=== PATIENT | female | born 1980 | race Caucasian/White ===

== ENCOUNTER → 2017-07-28 | Outpatient (REF) ==
[~2017-07-28] MED LIST: ACET-2031 PO; ALL-DPT PO; AMO250L PO; ASPI81TA60 PO; ATOV1TAB17 PO; CIPR-214 PO; DEXT1DRO10 OS; ESOM40CA42 PO; KET10 PO; LAC3.5 OP; LOR5/325 PO; LORTAB PO; PAN40 PO; PER PO; PRED-314 PO; TYPH1CAP7 PO; VALA100059 PO; VALA500T66 PO; ZOFRAN PO; ZOLP-1 PO; ZOLP-350 PO
== END ==
DX: Z02.9 Encounter for administrative examinations, unspecified (principal)

== ENCOUNTER 2018-05-07 11:20 | Emergency (ER) | payer OTHER ==
[~2018-05-07 11:20] MED LIST changes: +AMOX-559 PO; +CIPR750T84 PO; +FLUT16SP19 NS; +GUAI120L3 PO; +TRIA5PAS12 TOP
--- NOTE | 2018-05-07 11:42 | EKG ---
[place]AC[place] [facility] [place]IENT NAME: CICI RAGSDALE : [id number] MR: [id number] V: [id number] EXAM DATE: ORDERING PHYSICIAN: DONNELL GOEL TECHNOLOGIST: LUIS A Alcantar Reason : CP Blood Pressure : / mmHG Vent. Rate : 068 BPM Atrial Rate : 068 BPM P-R Int : 154 ms QRS Dur : 084 ms QT Int : 402 ms P-R-T Axes : 042 035 030 degrees QTc Int : 427 ms Sinus rhythm T wave changes through precordial leads Decreased R wave progression through anterior leads Abnormal ECG No previous ECGs available Confirmed by KEYSHA MACHADO ([id number]) on 05/07/2018 4:34:56 PM Referred By: MANASA Confirmed By:KEYSHA MACHADO
[2018-05-07 11:45] LABS: PLATELET COUNT, AUTOMATED 258 K/uL (150-450)
[2018-05-07] MEDS ORDERED: IOPAMIDOL 76% 100 ML INFUS BTL 100 ML ONE (11:47)
[2018-05-07] MEDS ORDERED: NS(*) 0.9% 50 ML BAG 50 ML ONE (11:47)
--- NOTE | 2018-05-07 12:47 | ER Report ---
History and Physical Time Seen By MD: 11:45 Hx. of Stated Complaint: PT PRESENTS WITH HX OF CHEST PRESSURE FOR 2 DAYS. hAD A RECENT COUGH, PROD OF YELLOW IN AM. PT ISD NON SMOKER, WITH A HX OF PE 12 YRS AGO. HAD A RECENT LONG PLANE TRIP HPI/ROS CHIEF COMPLAINT: Pleuritic chest pain and shortness of breath HISTORY OF PRESENT ILLNESS: Patient is a 38-year-old female with prior history of pulmonary embolism approximately 14 years ago she is currently off anticoagulation she states at that time she did have a hypercoagulability workup which was negative. It was felt that the pulmonary embolism was likely to hor elpidio therapy. Patient recently returned from [place] on a [place] trip. She states that just prior to going on the trip she developed some upper respiratory like symptoms. Which included some cough and shortness of breath also generalized malaise. She was prescribed antibiotics by her primary care provider to take if she did not feel better and approximate 5 days into that trip she began her antibiotic therapy. She is returning home she's noticed exertional dyspnea also dyspnea at rest along with pleuritic type chest pain. Patient's current pain level is 3 out of 10 in intensity. She also just reports "not feeling well". Patient did receive her immunization for flu this year. REVIEW OF SYSTEMS: Constitutional: No fever, no chills. Eyes: No discharge. ENT: No sore throat. Cardiovascular: Pleuritic chest pain Respiratory: Dyspnea Gastrointestinal: No abdominal pain, no vomiting. Genitourinary: No hematuria. Musculoskeletal: No back pain. Skin: No rashes. Neurological: No headache. Allergies: Coded Allergies: clarithromycin (Verified Allergy, Intermediate, "Dumping Syndrome", 12/31/16) Home Meds Active Scripts Azithromycin (ZITHROMAX) 250 Mg Tablet, 1 TAB PO QDAY, #4 TAB 0 Refills Prov:DONNELL GOEL MD 05/07/18 Guaifenesin/Codeine Phosphate (Codeine-Guaifen 10-100 mg/5 ml) 120 Ml Liquid, 1- 2 TSP PO Q6H PRN for COUGH, #120 ML 0 Refills Prov:MARY GREEN DNP, TELESCOPE REPAIRER-BC 05/05/18 Amoxicillin/Pot Clav 875-125 Mg Tab (AUGMENTIN 875-125 TABLET) 1 Each Tablet, 1 TAB PO Q12H for 10 Days, #20 TAB 0 Refills Prov:MARY GREEN DNP [facility] 04/24/18 Ciprofloxacin Hcl (CIPROFLOXACIN HCL) 750 Mg Tablet, 1 TAB PO QDAY PRN for Traveler's Diarrhea for 1 Day, #3 TAB 0 Refills Take one tab by mouth x1. Continue for 3 days total if symptoms are not resolved after 1 dose. Prov:MARY GREEN DNP [facility] 04/17/18 Fluticasone Prop 50 Mcg Ns (FLONASE 50 MCG NS) 16 Gm Trafalgar.susp, 2 SPRAYS NS QDAY, #1 BOT 11 Refills Prov:MRAY GREEN DNP [facility] 03/03/18 Valacyclovir Hcl (VALACYCLOVIR) 1,000 Mg Tablet, 2 TAB PO BID PRN for Cold Sore for 1 Day, #4 TAB 11 Refills Take at onset of cold sore. Prov:MARY GREEN DNP [facility] 11/09/17 Reported Medications Esomeprazole Magnesium (NEXIUM) 40 Mg Capsule.dr, 1 CAP PO QDAY, CAP 12/31/16 Acetaminophen (TYLENOL 325 MG (OR EQUIV)) 325 Mg Tab, 650 MG PO Q4-6H PRN 10/24/11 Aspirin (CHILD CHEW ASA (OR EQUIV)) 81 Mg Chew, 81 MG PO DAILY 10/24/11 P-Ephed Hcl/Fexofenadine Hcl (Tatiana-D 24 Hour Tablet) 1 Tab.sr .24 H Tab.sr.24h, 1 TAB.SR PO PRN, 0 Refills 05/17/09 Past Medical/Surgical History History of prior PE currently not on anticoagulation Hx Smoking: No Smoking Status: Never Smoker Hx Substance Use Disorder: No Hx Alcohol Use: Yes (RARE) Constitutional Vital Sign - Last 24 Hours 05/07/18 05/07/18 05/07/18 05/07/18 11:25 11:25 11:30 11:36 Temp 98.0 Pulse 83 Resp 20 B/P (MAP) 147/120 147/120 (129) 122/88 (99) Pulse Ox 90 O2 Delivery Room Air O2 Flow Rate 2.0 05/07/18 05/07/18 05/07/18 05/07/18 11:40 11:50 12:00 12:05 Pulse 76 ??? Resp 21 10 B/P (MAP) 133/91 (105) 122/87 (99) 112/81 (91) Pulse Ox 95 05/07/18 05/07/18 05/07/18 05/07/18 12:10 12:20 12:30 12:35 Pulse 73 Resp 9 B/P (MAP) ???/??? (1665) 118/95 (103) 120/80 (93) Pulse Ox 96 05/07/18 05/07/18 05/07/18 05/07/18 12:40 12:50 13:00 13:05 Pulse 65 Resp 6 B/P (MAP) 123/74 (90) 127/83 (98) 115/73 (87) Pulse Ox 98 05/07/18 05/07/18 05/07/18 05/07/18 13:10 13:20 13:30 13:35 Pulse 68 Resp 7 B/P (MAP) 116/78 (91) 122/81 (95) 127/88 (101) Pulse Ox 96 05/07/18 13:40 B/P (MAP) 116/73 (87) Intake and Output 05/07/18 05/07/18 05/08/18 15:00 23:00 07:00 Intake Total 700 ml Balance 700 ml Physical Exam General/Constitutional: Patient is awake, alert, nontoxic and in no acute respiratory distress. Head: Normocephalic and atraumatic. Eyes: Conjunctival clear, Pupils are equal and reactive to light. Extraocular muscles are intact and symmetrical. Sclera are clear and anicteric. Ears:External canals are clear. Tympanic membranes are clear with normal landmarks and light reflex. Nares: No rhinorrhea or bleeding. Turbinates are pink and moist. Oropharyngeal: Mucous membranes are moist. There is no pharyngeal erythema or exudate. There are no palatal petechiae. Uvula is midline and symmetrical. Neck: Supple, no adenopathy. Cardiovascular: Heart is regular rate and rhythm without audible murmurs, rubs or gallops. Pulmonary: Lungs are clear to auscultation bilaterally. There are no wheezes, rales, or rhonchi. Chest rise is symmetrical Abdomen: Soft, nontender, no guarding or peritoneal signs. Extremities: No gross deformities, No peripheral cyanosis. Able to move all 4 extremities. Neuro: Alert and oriented X3, Skin: No rashes, skin is warm dry and well perfused. Medical Decision Making Data Points Result Diagram: 05/07/18 1128 05/07/18 1128 Laboratory Hematology Test 05/07/18 11:28 Red Blood Count 5.56 M/uL (4.17-5.56) Mean Corpuscular Volume 89.7 fL (80.0-96.0) Mean Corpuscular Hemoglobin 30.6 pg (26.0-33.0) Mean Corpuscular Hemoglobin Concent 34.1 g/dL (32.0-36.0) Red Cell Distribution Width 12.6 % (11.5-14.5) Mean Platelet Volume 8.0 fL (7.2-11.1) Neutrophils (%) (Auto) 63.5 % (39.4-72.5) Lymphocytes (%) (Auto) 25.9 % (17.6-49.6) Monocytes (%) (Auto) 7.6 % (4.1-12.4) Eosinophils (%) (Auto) 2.5 % (0.4-6.7) Basophils (%) (Auto) 0.5 % (0.3-1.4) Nucleated RBC Relative Count (auto) 0.1 /100WBC Neutrophils # (Auto) 6.6 K/uL (2.0-7.4) Lymphocytes # (Auto) 2.7 K/uL (1.3-3.6) Monocytes # (Auto) 0.8 K/uL (0.3-1.0) Eosinophils # (Auto) 0.3 K/uL (0.0-0.5) Basophils # (Auto) 0.1 K/uL (0.0-0.1) Nucleated RBC Absolute Count (auto) 0.01 K/uL Prothrombin Time 13.2 seconds (12.0-14.4) Prothromb Time International Ratio 1.00 Activated Partial Thromboplast Time 28 seconds (23-35) Sodium Level 139 mmol/L (137-145) Potassium Level 4.2 mmol/L (3.5-5.0) Chloride Level 101 mmol/L (98-107) Carbon Dioxide Level 26 mmol/L (22-31) Blood Urea Nitrogen 17 mg/dl (7-18) Creatinine 1.10 mg/dl (0.52-1.04) Glomerular Filtration Rate Calc 55.0 Random Glucose 88 mg/dl (75-110) Calcium Level 9.6 mg/dl (8.4-10.2) Total Bilirubin 0.8 mg/dl (0.2-1.3) Aspartate Amino Transf (AST/SGOT) 34 U/L (0-35) Alanine Aminotransferase (ALT/SGPT) 58 U/L (0-56) Alkaline Phosphatase 74 U/L (0-126) Troponin I < 0.012 ng/ml B-Type Natriuretic Peptide < 5 pg/ml (0-100) Total Protein 8.8 g/dl (6.3-8.2) Albumin 5.0 g/dl (3.5-5.0) Chemistry Test 05/07/18 11:28 White Blood Count 10.5 k/uL (4.5-11.0) Red Blood Count 5.56 M/uL (4.17-5.56) Hemoglobin 17.0 g/dL (12.0-16.0) Hematocrit 49.8 % (34.0-47.0) Mean Corpuscular Volume 89.7 fL (80.0-96.0) Mean Corpuscular Hemoglobin 30.6 pg (26.0-33.0) Mean Corpuscular Hemoglobin Concent 34.1 g/dL (32.0-36.0) Red Cell Distribution Width 12.6 % (11.5-14.5) Platelet Count 258 K/uL (150-450) Mean Platelet Volume 8.0 fL (7.2-11.1) Neutrophils (%) (Auto) 63.5 % (39.4-72.5) Lymphocytes (%) (Auto) 25.9 % (17.6-49.6) Monocytes (%) (Auto) 7.6 % (4.1-12.4) Eosinophils (%) (Auto) 2.5 % (0.4-6.7) Basophils (%) (Auto) 0.5 % (0.3-1.4) Nucleated RBC Relative Count (auto) 0.1 /100WBC Neutrophils # (Auto) 6.6 K/uL (2.0-7.4) Lymphocytes # (Auto) 2.7 K/uL (1.3-3.6) Monocytes # (Auto) 0.8 K/uL (0.3-1.0) Eosinophils # (Auto) 0.3 K/uL (0.0-0.5) Basophils # (Auto) 0.1 K/uL (0.0-0.1) Nucleated RBC Absolute Count (auto) 0.01 K/uL Prothrombin Time 13.2 seconds (12.0-14.4) Prothromb Time International Ratio 1.00 Activated Partial Thromboplast Time 28 seconds (23-35) Glomerular Filtration Rate Calc 55.0 Calcium Level 9.6 mg/dl (8.4-10.2) Total Bilirubin 0.8 mg/dl (0.2-1.3) Aspartate Amino Transf (AST/SGOT) 34 U/L (0-35) Alanine Aminotransferase (ALT/SGPT) 58 U/L (0-56) Alkaline Phosphatase 74 U/L (0-126) Troponin I < 0.012 ng/ml B-Type Natriuretic Peptide < 5 pg/ml (0-100) Total Protein 8.8 g/dl (6.3-8.2) Albumin 5.0 g/dl (3.5-5.0) Coagulation Test 05/07/18 11:28 Prothrombin Time 13.2 seconds Prothromb Time International Ratio 1.00 Activated Partial Thromboplast Time 28 seconds EKG/Imaging EKG Interpretation EKG shows sinus rhythm with a ventricular rate of 68 bpm. Otherwise appears normal. Monitor Interpretation: Normal Sinus Rhythm Imaging FACILITY: [facility] PATIENT NAME: Tegan Valenzuela : 1980 MR: [id number] V: [id number] EXAM DATE: ORDERING PHYSICIAN: DONNELL GOEL TECHNOLOGIST: Location: [facility] [place] Patient: Tegan Valenzuela : 1980 Visit/Account:[id number] Date of Sevice: 05/07/2018 CT CTA CHEST W & W/O CON HISTORY: pleuritic cp/ hx PE ADDITIONAL HISTORY: None. TECHNIQUE: CTA chest with intravenous contrast. Axial imaging acquired following administration of IV contrast timed for maximum opacification of the pulmonary arterial vasculature. Slab 3-D MIP reconstructed images were also created for further evaluation and interpretation. Reconstruction of the source data set includes multiplanar 2-D in the sagittal and coronal planes and 3-D reconstructed coronal slab MIP series. 3-D images were created by the technologist.Dose Lowering Technique One of the following dose optimization techniques was utilized in the performance of this exam: Automated exposure control; adjustment of the mA and/or kV according to the patient's size; or use of an iterative reconstruction technique. Specific details can be referenced in the facility's radiology CT exam operational policy. CONTRAST: 75 mL Isovue-370 COMPARISON: None. FINDINGS: Lungs/pleura: There is a subtle amount of atelectasis in the posterior sulcus of the left lower lobe Heart/vessels: Negative. There are no filling defects seen in the pulmonary arteries worrisome for a pulmonary embolus. Mediastinum/lymph nodes: Negative. Visualized upper abdomen: Negative. Bones/soft tissues: Negative. Additional findings: None IMPRESSION: There is a subtle amount of atelectasis in the posterior sulcus left lower lobe otherwise unremarkable CT of the chest Report Dictated By: Sophie Monge MD at 05/07/2018 1:00 PM Report E-Signed By: Sophie Monge MD at 05/07/2018 1:19 PM WSN:[email or web address] ED Course/Re-evaluation Clinical Indication for ER IV: IV Access ED Course 05/07/2018 12:47:05 pm at this time will be CT angiogram of the chest to rule out pulmonary embolism given the patient's high pretest probability. Patient was offered pain medication but she refused. Decision to Disposition Date: May 07, 2018 Decision to Disposition Time: 13:37 Depart Departure Latest Vital Signs Vital Signs Date Time Temp Pulse Resp B/P (MAP) Pulse Ox O2 Delivery O2 Flow Rate FiO2 05/07/18 13:40 116/73 (87) 05/07/18 13:35 68 7 96 05/07/18 11:36 2.0 05/07/18 11:25 98.0 Room Air Impression: Primary Impression: PLEURISY Condition: Improved Disposition: HOME OR SELF-CARE Referrals: MARY GREEN DNP, TELESCOPE REPAIRER-BC (PCP) Follow-up Routinely New Scripts Azithromycin (ZITHROMAX) 250 Mg Tablet 1 TAB PO QDAY, #4 TAB 0 Refills Prov: DONNELL GOEL MD 05/07/18 Patient Instructions: Pleurisy (DC) DONNELL GOEL MD May 07, 2018 12:47
[2018-05-07] MEDS ORDERED: NS(*) 0.9% 1000 ML BAG 1,000 ML IV ONE (12:55)
--- NOTE | 2018-05-07 13:28 | RADIOLOGY IMAGING REPORT ---
FACILITY: [facility] - [place] PATIENT NAME: Tegan Valenzuela : 1980 MR: [id number] V: [id number] EXAM DATE: ORDERING PHYSICIAN: DONNELL GOEL TECHNOLOGIST: Location: [facility] - [place] Patient: Tegan Valenzuela : 1980 Visit/Account:[id number] Date of Sevice: 05/07/2018 CT CTA CHEST W & W/O CON HISTORY: pleuritic cp/ hx PE ADDITIONAL HISTORY: None. TECHNIQUE: CTA chest with intravenous contrast. Axial imaging acquired following administration of IV contrast timed for maximum opacification of the pulmonary arterial vasculature. Slab 3-D MIP nasreen nstructed images were also created for further evaluation and interpretation. Reconstruction of the [facility] data set includes multiplanar 2-D in the sagittal and coronal planes and 3-D reconstructed amelia nal slab MIP series. 3-D images were created by the technologist.Dose Lowering Technique One of the following dose optimization techniques was utilized in the performance of this exam: Autom ated exposure control; adjustment of the mA and/or kV according to the patient's size; or use of an i terative reconstruction technique. Specific details can be referenced in the facility's radiology C T exam operational policy. CONTRAST: 75 mL Isovue-370 COMPARISON: None. FINDINGS: Lungs/pleura: There is a subtle amount of atelectasis in the posterior sulcus of the left lower lobe Heart/vessels: Negative. There are no filling defects seen in the pulmonary arteries worrisome for a pulmonary embolus. Mediastinum/lymph nodes: Negative. Visualized upper abdomen: Negative. Bones/soft tissues: Negative. Additional findings: None IMPRESSION: There is a subtle amount of atelectasis in the posterior sulcus left lower lobe otherwise unremarkabl e CT of the chest Report Dictated By: Sophie Monge MD at 05/07/2018 1:00 PM Report E-Signed By: Sophie Monge MD at 05/07/2018 1:19 PM WSN:[email or web address]
[2018-05-07] MEDS ORDERED: AZIT-1 PO (13:39)
[2018-05-07 13:40] VITALS: BP 116/73
[2018-05-07] MEDS ORDERED: AZITHROMYCIN 250 MG TAB PO ONE (13:40)
== END 2018-05-07 13:35 | disposition home or self-care (01) ==
LOC: ER 11:32
DX: R09.1 Pleurisy (principal); Z86.711 Personal history of pulmonary embolism
CPT/HCPCS: 71275; 83880; 84484; 85025; 85610; 85730; 93005; 96360; 99284; J7030; J7050; Q0144; Q9967; 82040; 82247; 82310; 82374; 82435; 82565; 82947; 84075; 84132; 84155; 84295; 84450; 84460; 84520

== ENCOUNTER → 2018-08-20 | Outpatient (REF) ==
[~2018-08-20] MED LIST changes: +AZIT-1 PO
[2018-08-20 09:04] LABS: LDL CHOLESTEROL 91 mg/dl
== END ==
DX: Z02.9 Encounter for administrative examinations, unspecified (principal)

== ENCOUNTER → 2018-09-29 | Outpatient (CLI) | payer OTHER ==
[~2018-09-29] MED LIST changes: +BIOT1TAB12 PO; +[UNRECOGNIZED DRUG - CODE] PO
--- NOTE | 2018-09-30 10:49 | RADIOLOGY IMAGING REPORT ---
FACILITY: [facility] PATIENT NAME: CICI RAGSDALE : [id number] MR: [id number] V: [id number] EXAM DATE: [id number] ORDERING PHYSICIAN: TIFFANY MANNING TECHNOLOGIST: Sayda Unger PROCEDURE:BILATERAL DIAGNOSTIC DIGITAL MAMMOGRAM WITH CAD ASSISTED INTERPRETATION & 3D TOMOSYNTHESIS REASON FOR STUDY: Palpable lump 11 o'clock position Right breast FAMILY HISTORY OF BREAST CANCER: None BREAST PROCEDURES/TREATMENTS: None COMPARISON STUDIES: None MAMMOGRAM VIEWS OBTAINED: Bilateral 2D & 3D full field CC & MLO projections. 2D & 3D Right XCC full field view & a 2D & 3D spot compression view in the Right MLO projection. Right breast Ultrasound was also performed. BREAST DENSITY: The breasts are heterogeneously dense which can obscure small masses. MAMMOGRAM FINDINGS: There was no demonstration of malignant appearing mass or calcification in either breast. ULTRASOUND AREA SCANNED: The 9-12 o'clock position of the Right breast. ULTRASOUND FINDINGS: No sonographic abnormality is identified to account for patient's palpable finding. Therefore, clinical follow up recommended. DIAGNOSTIC CATEGORY 1--NEGATIVE. RECOMMENDATIONS: ROUTINE MAMMOGRAM AND CLINICAL EVALUATION. CLINICAL EVALUATION. IMPRESSION: BIRADS 1: Negative. No significant abnormality identified to account for patient's palpable findings. Therefore, clinical follow up recommended. Dictated by: Sophie Monge M.D. on 09/29/2018 at 15:06 Transcribed by: AYO on 09/30/2018 at 7:11 Approved by: Sophie Monge M.D. on 09/30/2018 at 10:47 [facility]
--- NOTE | 2018-09-30 10:50 | RADIOLOGY IMAGING REPORT ---
FACILITY: [facility] - [place] PATIENT NAME: CICI RAGSDALE : [id number] MR: [id number] V: [id number] EXAM DATE: ORDERING PHYSICIAN: TIFFANY MANNING TECHNOLOGIST: Giacomo Angel RDMS, JACQUES PROCEDURE:BILATERAL DIAGNOSTIC DIGITAL MAMMOGRAM WITH CAD ASSISTED INTERPRETATION & 3D TOMOSYNTHESIS REASON FOR STUDY: Palpable lump 11 o'clock position Right breast FAMILY HISTORY OF BREAST CANCER: None BREAST PROCEDURES/TREATMENTS: None COMPARISON STUDIES: None MAMMOGRAM VIEWS OBTAINED: Bilateral 2D & 3D full field CC & MLO projections. 2D & 3D Right XCC full field view & a 2D & 3D spot compression view in the Right MLO projection. Right breast Ultrasound was also performed. BREAST DENSITY: The breasts are heterogeneously dense which can obscure small masses. MAMMOGRAM FINDINGS: There was no demonstration of malignant appearing mass or calcification in either breast. ULTRASOUND AREA SCANNED: The 9-12 o'clock position of the Right breast. ULTRASOUND FINDINGS: No sonographic abnormality is identified to account for patient's palpable finding. Therefore, clinical follow up recommended. DIAGNOSTIC CATEGORY 1--NEGATIVE. RECOMMENDATIONS: ROUTINE MAMMOGRAM AND CLINICAL EVALUATION. CLINICAL EVALUATION. IMPRESSION: BIRADS 1: Negative. No significant abnormality identified to account for patient's palpable findings. Therefore, clinical follow up recommended. Dictated by: Sophie Monge M.D. on 09/29/2018 at 15:06 Transcribed by: AYO on 09/30/2018 at 7:11 [facility] Approved by: Sophie Monge M.D. on 09/30/2018 at 10:47
== END ==
LOC: MAMO 00:28
PROVIDERS: ATTEND Obstetrics & Gynecology
DX: N63.11 Unspecified lump in the right breast, upper outer quadrant (principal)
CPT/HCPCS: 77062; 77066